=== PATIENT | female | born 2005 | race Caucasian/White ===

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

== ENCOUNTER 2025-09-01 22:41 | Emergency (ER) | payer SELFPAY ==
[2025-09-01 22:49] VITALS: BP 116/80; PULSE 93; RESP 18; TEMP 36.6; O2SAT 100
--- NOTE | 2025-09-02 02:25 | PC.NURSE ---
pt name was called twice for vitals and no response to both call outs. pt is not seen in either bathroom or waiting room. pt left without being seen by provider.
== END 2025-09-02 03:52 | disposition left against medical advice (07) ==
LOC: ANHED 09-02 02:55
DX: S61.257A Open bite of left little finger without damage to nail, initial encounter (principal); W54.0XXA Bitten by dog, initial encounter
CPT/HCPCS: 99199